=== PATIENT | female | born 1965 | race Two or more races ===

== ENCOUNTER 2022-07-10 19:23 | Emergency (ER) | payer OTHER ==
[~2022-07-10] VITALS: Ht 170.2 cm; Wt 81.6 kg
== END 2022-07-10 21:40 | disposition home or self-care (01) ==
LOC: ER 19:23
DX: R06.9 Unspecified abnormalities of breathing (principal)

== ENCOUNTER 2025-01-11 08:18 | Emergency (ER) | payer OTHER ==
[~2025-01-11] VITALS: Ht 170.2 cm; Wt 81.6 kg
[2025-01-11 08:24] VITALS: BP 135/85; O2SAT 98
[2025-01-11] MEDS ORDERED: KETOROLAC TROMETHAMINE 60 MG VIAL IM ONE ×2 (09:15→09:36)
== END 2025-01-11 09:51 | disposition home or self-care (01) ==
LOC: ER 08:19
DX: B02.9 Zoster without complications (principal); R10.9 Unspecified abdominal pain